=== PATIENT | male | born 1955 | race Native Hawaiian/Other Pacific Islander ===

== ENCOUNTER 2021-04-09 22:10 | Emergency (ER) | payer OTHER ==
[~2021-04-09] VITALS: Ht 182.9 cm; Wt 71.7 kg
[2021-04-10] MEDS ORDERED: ACIDOPHILU6 PO (00:33)
[2021-04-10] MEDS ORDERED: B COMPLEX PO (00:39)
[2021-04-10] MEDS ORDERED: DIVA250T2 PO (00:41)
[2021-04-10] MEDS ORDERED: LEXAPRO20 MG PO (00:44)
[2021-04-10] MEDS ORDERED: MEDR10TA4 PO (00:45)
[2021-04-10] MEDS ORDERED: KP MELATONIN3 MG PO (00:46)
[2021-04-10] MEDS ORDERED: SEROQUEL25 MG PO (00:52)
[2021-04-10] MEDS ORDERED: NAMENDA10 MG PO (00:54)
[2021-04-10] MEDS ORDERED: LORA0.5T17 PO (00:56)
[2021-04-10] MEDS ORDERED: TYLENOL325 MG PO (00:57)
== END 2021-04-09 23:15 | disposition other institution (70) ==
LOC: ED 22:14
DX: R46.89 Other symptoms and signs involving appearance and behavior (principal); Z91.14 Patient's other noncompliance with medication regimen; Z91.19 Patient's noncompliance with other medical treatment and regimen; Z11.52 Encounter for screening for COVID-19; Z04.6 Encounter for general psychiatric examination, requested by authority
CPT/HCPCS: 87635; 99283; J1630; J2060; U0003